=== PATIENT | female | born 1935 | race Caucasian/White ===

== ENCOUNTER → 2016-10-12 | Outpatient (CLI) | payer MEDICARE, BC ==
[~2016-10-12] MED LIST: CALCIUM 600600 M2 PO; EVISTA 60MG60 MG/TAB PO; MAGNESIUM400 M1 PO; OCUVITE TABLET1 TAB PO; ST. JOSEPH ASPI81 M1 PO; VYTORIN 10 MG-21 TAB PO
== END ==
LOC: LAB 15:21
DX: C34.12 Malignant neoplasm of upper lobe, left bronchus or lung (principal)

== ENCOUNTER → 2016-10-18 | Outpatient (CLI) | payer MEDICARE, BC | LOC: LAB 13:29 | DX: C34.12 Malignant neoplasm of upper lobe, left bronchus or lung (principal) ==

== ENCOUNTER → 2016-10-22 | Outpatient (CLI) | payer MEDICARE, BC | LOC: LAB 13:41 | DX: C34.12 Malignant neoplasm of upper lobe, left bronchus or lung (principal) ==

== ENCOUNTER → 2016-10-29 | Outpatient (CLI) | payer MEDICARE, BC | LOC: LAB 12:00 | DX: C43.1 Malignant melanoma of eyelid, including canthus (principal) ==

== ENCOUNTER → 2016-11-05 | Outpatient (CLI) | payer MEDICARE, BC | LOC: LAB 12:31 | DX: C34.12 Malignant neoplasm of upper lobe, left bronchus or lung (principal) ==

== ENCOUNTER → 2016-12-24 | Outpatient (CLI) | payer MEDICARE, BC | LOC: LAB 11:22 | DX: C34.12 Malignant neoplasm of upper lobe, left bronchus or lung (principal) ==

== ENCOUNTER → 2017-03-28 | Outpatient (CLI) | payer MEDICARE, BC ==
[2016-08-07 19:41] VITALS: BP 160/82
== END ==
LOC: LAB 09:00
DX: C34.12 Malignant neoplasm of upper lobe, left bronchus or lung (principal)

== ENCOUNTER → 2017-06-24 | Outpatient (CLI) | payer MEDICARE, BC ==
[2016-08-07 19:41] VITALS: BP 160/82
== END ==
LOC: LAB 09:43
DX: C34.12 Malignant neoplasm of upper lobe, left bronchus or lung (principal)

== ENCOUNTER → 2017-08-03 | Outpatient (CLI) | payer MEDICARE, BC ==
[2016-08-07 19:41] VITALS: BP 160/82
[2017-08-03 10:00] LABS: EOS # 0.4 (0.04-0.40); EOS % 5.3 % (1.0-5.0); HEMATOCRIT 33.4 % (37.0-47.0); HEMOGLOBIN 10.6 g/dL (12.5-16.0); MEAN CELL VOLUME 109 fl (78-100); MEAN CORPUSCULAR HEMOGLOBIN 35 pg (27-31); MEAN CORPUSCULAR HGB CONC 32 g/dL (33-37); MEAN PLATELET VOLUME 9.6 fl (7.4-10.4); MONO # 0.7 (0.20-0.80); NEU # 3.5 (1.40-6.50); PLATELET COUNT 206 K/mm3 (130-400); RED BLOOD COUNT 3.07 M/mm3 (4.10-5.30); RED CELL DISTRIBUTION WIDTH 11.7 % (11.5-14.5); WHITE BLOOD COUNT 6.6 K/mm3 (4.8-10.8)
[2017-08-03 10:24] LABS: ALBUMIN 3.8 g/dL (3.5-5.0); BUN/CREATININE RATIO 16.6 (6.0-26.0); CALCIUM 9.3 mg/dL (8.4-10.2); POTASSIUM 3.8 mmol/L (3.6-5.0)
== END ==
LOC: LAB 09:42
PROVIDERS: Internal Medicine Medical Oncology
DX: C34.12 Malignant neoplasm of upper lobe, left bronchus or lung (principal); E78.00 Pure hypercholesterolemia, unspecified

== ENCOUNTER → 2017-08-22 | Outpatient (CLI) | payer MEDICARE, BC ==
[2016-08-07 19:41] VITALS: BP 160/82
[2017-08-22 09:46] LABS: ALBUMIN 3.9 g/dL (3.5-5.0); BUN/CREATININE RATIO 15.8 (6.0-26.0); CALCIUM 8.8 mg/dL (8.4-10.2); POTASSIUM 3.9 mmol/L (3.6-5.0); TOTAL BILIRUBIN 0.7 mg/dL (0.2-1.3); TOTAL PROTEIN 7.1 g/dL (6.3-8.2)
[2017-08-22 09:55] LABS: EOS # 0.3 (0.04-0.40); EOS % 5.6 % (1.0-5.0); HEMATOCRIT 37.1 % (37.0-47.0); HEMOGLOBIN 11.8 g/dL (12.5-16.0); LYMPH# 1.5 (1.50-4.00); MEAN CELL VOLUME 108 fl (78-100); MEAN CORPUSCULAR HEMOGLOBIN 34 pg (27-31); MEAN CORPUSCULAR HGB CONC 32 g/dL (33-37); MEAN PLATELET VOLUME 10.1 fl (7.4-10.4); MONO # 0.5 (0.20-0.80); NEU # 3.3 (1.40-6.50); PLATELET COUNT 158 K/mm3 (130-400); RED BLOOD COUNT 3.43 M/mm3 (4.10-5.30); RED CELL DISTRIBUTION WIDTH 11.7 % (11.5-14.5); WHITE BLOOD COUNT 5.6 K/mm3 (4.8-10.8)
== END ==
LOC: LAB 09:21 → EDSTATUS 09:22
PROVIDERS: Internal Medicine Medical Oncology
DX: C34.90 Malignant neoplasm of unspecified part of unspecified bronchus or lung (principal)

== ENCOUNTER → 2017-09-12 | Outpatient (CLI) | payer MEDICARE, BC ==
[2016-08-07 19:41] VITALS: BP 160/82
[2017-09-12 09:28] LABS: EOS # 0.3 (0.04-0.40); EOS % 5.6 % (1.0-5.0); HEMATOCRIT 36.2 % (37.0-47.0); HEMOGLOBIN 11.5 g/dL (12.5-16.0); LYMPH# 1.6 (1.50-4.00); MEAN CELL VOLUME 108 fl (78-100); MEAN CORPUSCULAR HEMOGLOBIN 34 pg (27-31); MEAN CORPUSCULAR HGB CONC 32 g/dL (33-37); MEAN PLATELET VOLUME 10.2 fl (7.4-10.4); MONO # 0.5 (0.20-0.80); NEU # 2.8 (1.40-6.50); PLATELET COUNT 176 K/mm3 (130-400); RED BLOOD COUNT 3.34 M/mm3 (4.10-5.30); RED CELL DISTRIBUTION WIDTH 11.5 % (11.5-14.5); WHITE BLOOD COUNT 5.2 K/mm3 (4.8-10.8)
[2017-09-12 09:40] LABS: ALBUMIN 3.7 g/dL (3.5-5.0); BUN/CREATININE RATIO 16.7 (6.0-26.0); CALCIUM 9.2 mg/dL (8.4-10.2); POTASSIUM 3.8 mmol/L (3.6-5.0); TOTAL BILIRUBIN 0.7 mg/dL (0.2-1.3); TOTAL PROTEIN 6.6 g/dL (6.3-8.2)
== END ==
LOC: LAB 09:06
PROVIDERS: Internal Medicine Medical Oncology
DX: C34.12 Malignant neoplasm of upper lobe, left bronchus or lung (principal)

== ENCOUNTER → 2017-09-26 | Outpatient (CLI) | payer MEDICARE, BC ==
[2016-08-07 19:41] VITALS: BP 160/82
[2017-09-26 09:46] LABS: EOS # 0.3 (0.04-0.40); EOS % 4.9 % (1.0-5.0); HEMATOCRIT 38.8 % (37.0-47.0); HEMOGLOBIN 12.5 g/dL (12.5-16.0); LYMPH# 1.8 (1.50-4.00); MEAN CELL VOLUME 107 fl (78-100); MEAN CORPUSCULAR HEMOGLOBIN 35 pg (27-31); MEAN CORPUSCULAR HGB CONC 32 g/dL (33-37); MEAN PLATELET VOLUME 10.8 fl (7.4-10.4); MONO # 0.5 (0.20-0.80); NEU # 3.6 (1.40-6.50); PLATELET COUNT 176 K/mm3 (130-400); RED BLOOD COUNT 3.62 M/mm3 (4.10-5.30); RED CELL DISTRIBUTION WIDTH 11.5 % (11.5-14.5); WHITE BLOOD COUNT 6.3 K/mm3 (4.8-10.8)
[2017-09-26 10:10] LABS: ALBUMIN 3.9 g/dL (3.5-5.0); BUN/CREATININE RATIO 19.5 (6.0-26.0); CALCIUM 9.1 mg/dL (8.4-10.2); POTASSIUM 4.2 mmol/L (3.6-5.0); TOTAL BILIRUBIN 0.7 mg/dL (0.2-1.3); TOTAL PROTEIN 6.8 g/dL (6.3-8.2)
== END ==
LOC: LAB 09:26
PROVIDERS: Internal Medicine Medical Oncology
DX: C34.12 Malignant neoplasm of upper lobe, left bronchus or lung (principal)

== ENCOUNTER → 2017-11-09 | Outpatient (CLI) | payer MEDICARE, BC ==
[2016-08-07 19:41] VITALS: BP 160/82
== END ==
LOC: RAD 08:33
DX: C34.12 Malignant neoplasm of upper lobe, left bronchus or lung (principal); R59.0 Localized enlarged lymph nodes; K76.89 Other specified diseases of liver; C78.7 Secondary malignant neoplasm of liver and intrahepatic bile duct; R93.7 Abnormal findings on diagnostic imaging of other parts of musculoskeletal system
CPT/HCPCS: Q9967

== ENCOUNTER → 2018-01-19 | Outpatient (CLI) | payer MEDICARE, BC ==
[2016-08-07 19:41] VITALS: BP 160/82
== END ==
LOC: RAD 08:56
DX: R91.8 Other nonspecific abnormal finding of lung field (principal); K76.89 Other specified diseases of liver

== ENCOUNTER → 2018-09-19 | Outpatient (CLI) | payer MEDICARE, BC ==
[2016-08-07 19:41] VITALS: BP 160/82
[2018-09-19 13:22] LABS: URINE APPEARANCE HAZY; URINE BILIRUBIN NEGATIVE (NEGATIVE); URINE BLOOD TRACE (NEGATIVE); URINE COLOR YELLOW; URINE GLUCOSE NEGATIVE (NEGATIVE); URINE KETONE NEGATIVE (NEGATIVE); URINE NITRATE NEGATIVE (NEGATIVE); URINE PROTEIN(semi-quant) TRACE mg/dL (NEGATIVE); URINE UROBILINOGEN NORMAL (NORMAL)
[2018-09-19 13:23] LABS: URINE LEUKOCYTE ESTERASE TRACE (NEGATIVE); URINE WBC 0-1 /hpf (0-3)
== END ==
LOC: LAB 09:42
PROVIDERS: Family Medicine
DX: C34.12 Malignant neoplasm of upper lobe, left bronchus or lung (principal); C77.1 Secondary and unspecified malignant neoplasm of intrathoracic lymph nodes; C78.7 Secondary malignant neoplasm of liver and intrahepatic bile duct; R35.0 Frequency of micturition

== ENCOUNTER → 2018-09-20 | Outpatient (CLI) | payer MEDICARE, BC ==
[2016-08-07 19:41] VITALS: BP 160/82
[2018-09-20 12:43] LABS: HEMATOCRIT 39.4 % (37.0-47.0); MEAN CELL VOLUME 108 fl (78-100); MEAN CORPUSCULAR HGB CONC 33 g/dL (33-37); MEAN PLATELET VOLUME 10.2 fl (7.4-10.4); PLATELET COUNT 234 K/mm3 (130-400); RED BLOOD COUNT 3.64 M/mm3 (4.10-5.30); RED CELL DISTRIBUTION WIDTH 12.1 % (11.5-14.5); WHITE BLOOD COUNT 6.2 K/mm3 (4.8-10.8)
[2018-09-20 13:16] LABS: MEAN CORPUSCULAR HEMOGLOBIN 36 pg (27-31)
[2018-09-20 13:19] LABS: LYMPHOCYTE 23 % (20-51); MONOCYTE 10 % (3-10); NEUTROPHILS 63 % (42-75)
[2018-09-20 13:32] LABS: ALBUMIN 4.2 g/dL (3.5-5.0); CALCIUM 9.5 mg/dL (8.4-10.2); POTASSIUM 4.2 mmol/L (3.6-5.0); TOTAL BILIRUBIN 0.7 mg/dL (0.2-1.3); TOTAL PROTEIN 6.6 g/dL (6.3-8.2)
== END ==
LOC: LAB 12:06
PROVIDERS: Internal Medicine Critical Care Medicine
DX: C34.90 Malignant neoplasm of unspecified part of unspecified bronchus or lung (principal)

== ENCOUNTER → 2018-11-21 | Outpatient (CLI) | payer MEDICARE, BC ==
[2016-08-07 19:41] VITALS: BP 160/82
[2018-11-21 13:26] LABS: URINE APPEARANCE CLEAR; URINE BILIRUBIN NEGATIVE (NEGATIVE); URINE BLOOD NEGATIVE (NEGATIVE); URINE COLOR YELLOW; URINE GLUCOSE NEGATIVE (NEGATIVE); URINE KETONE NEGATIVE (NEGATIVE); URINE LEUKOCYTE ESTERASE NEGATIVE (NEGATIVE); URINE NITRATE NEGATIVE (NEGATIVE); URINE PROTEIN(semi-quant) TRACE mg/dL (NEGATIVE); URINE UROBILINOGEN NORMAL (NORMAL)
[2018-11-21 13:27] LABS: URINE MUCUS PRESENT (NOT PRESENT)
[2018-11-21 13:42] LABS: CALCIUM 9.1 mg/dL (8.4-10.2)
== END ==
LOC: LAB 12:47
PROVIDERS: Internal Medicine
DX: N18.3 Chronic kidney disease, stage 3 (moderate) (principal)

== ENCOUNTER → 2019-01-04 | Outpatient (CLI) | payer MEDICARE, BC ==
[2016-08-07 19:41] VITALS: BP 160/82
== END ==
LOC: RAD 08:50
DX: C34.12 Malignant neoplasm of upper lobe, left bronchus or lung (principal); C78.7 Secondary malignant neoplasm of liver and intrahepatic bile duct; R59.0 Localized enlarged lymph nodes
CPT/HCPCS: Q9967

== ENCOUNTER → 2019-05-01 | Outpatient (CLI) | payer MEDICARE, BC ==
[2016-08-07 19:41] VITALS: BP 160/82
[2019-05-01 14:29] LABS: URINE APPEARANCE HAZY; URINE COLOR YELLOW; URINE PROTEIN(semi-quant) 1+ mg/dL (NEGATIVE)
[2019-05-01 14:30] LABS: URINE BILIRUBIN NEGATIVE (NEGATIVE); URINE BLOOD NEGATIVE (NEGATIVE); URINE GLUCOSE NEGATIVE (NEGATIVE); URINE KETONE NEGATIVE (NEGATIVE); URINE LEUKOCYTE ESTERASE 1+ (NEGATIVE); URINE NITRATE NEGATIVE (NEGATIVE); URINE UROBILINOGEN NORMAL (NORMAL)
== END ==
LOC: LAB 13:43
PROVIDERS: Family Medicine
DX: R30.0 Dysuria (principal)

== ENCOUNTER 2019-09-29 19:41 | Emergency (ER) | payer MEDICARE, BC ==
[2019-09-29] MEDS ORDERED: PROAIR HFA0.09 MG/AC IH (19:55)
[2019-09-29] MEDS ORDERED: DESYREL50 MG PO (19:55)
[2019-09-29] MEDS ORDERED: FLUOXETINE HCL10 MG PO (19:55)
[2019-09-29] MEDS ORDERED: ALBUTEROL2.5 MG/3 M IH (19:55)
[2019-09-29] MEDS ORDERED: ED TYLENOL6 UDTAB/BO PO (19:55)
[2019-09-29] MEDS ORDERED: PREDNISONE10 MG PO (19:56)
[2019-09-29] MEDS ORDERED: PANTOPRAZOLE SO40 MG PO (19:56)
[2019-09-29] MEDS ORDERED: LORAZEPAM1 M1 PO (19:56)
[2019-09-29 20:48] LABS: HEMOGLOBIN 11.1 g/dL (12.5-16.0); MEAN CELL VOLUME 109 fl (78-100); MEAN CORPUSCULAR HEMOGLOBIN 35 pg (27-31); MEAN CORPUSCULAR HGB CONC 32 g/dL (33-37); MEAN PLATELET VOLUME 9.9 fl (7.4-10.4); PLATELET COUNT 264 K/mm3 (130-400); RED BLOOD COUNT 3.22 M/mm3 (4.10-5.30); RED CELL DISTRIBUTION WIDTH 12.4 % (11.5-14.5); WHITE BLOOD COUNT 6.4 K/mm3 (4.8-10.8)
[2019-09-29 20:55] LABS: POTASSIUM 3.8 mmol/L (3.5-5.1)
[2019-09-29 20:56] LABS: CALCIUM 8.1 mg/dL (8.3-10.5)
[2019-09-29 21:07] LABS: LYMPHOCYTE 16 % (20-51); MONOCYTE 12 % (3-10); NEUTROPHILS 72 % (42-75)
[2019-09-29] MEDS ORDERED: IPRATROPIUM BROM3 M1 IH (22:17)
[2019-09-29] MEDS ORDERED: LORAZEPAM0.5 M1 PO (22:20)
[2019-09-29 22:35] VITALS: BP 124/70
== END 2019-09-29 22:35 | disposition home or self-care (01) ==
LOC: ED 19:41
PROVIDERS: Family Medicine
DX: C34.90 Malignant neoplasm of unspecified part of unspecified bronchus or lung (principal); F41.9 Anxiety disorder, unspecified; J44.9 Chronic obstructive pulmonary disease, unspecified; F17.210 Nicotine dependence, cigarettes, uncomplicated